=== PATIENT | female | born 1985 | race African-American/Black ===

== ENCOUNTER 2018-06-04 14:31 | Day surgery (SDC) | payer BC, OTHER ==
[2018-06-04 15:27] VITALS: BMI 36.8
--- NOTE | 2018-06-04 16:15 | PDOC.LDHP ---
Labor and Delivery H&P Chief complaint: other HPI: 32 y/o at 27w2d presents after being seen in [place] with the complaint that it feels like her baby is shaking. Dr. Moreira was concerned for seizures and sent her here for evaluation, as their office is closing. Pt describes as intermittent short vibrations coming from her baby. When asked if it felt like "shivering" she agreed. Feels like the baby has good movement but was nervous and has a lot of anxiety. Denies VB, LOF, ctx or decreased FM. ROS neg for HEENT, CV, pulm, GI, , neuro, psych, skin, musculoskeletal, or constitutional symptoms other than mentioned above. OB History Details: 3 prior term SVDs Current complications: none Past Medical History: Anxiety Current medications: pre- vitamins Previous surgical history: other (laparoscopy for endometriosis) Allergies/Adverse Reactions: Allergies Allergy/AdvReac Type Severity Reaction Status Date / Time tramadol Allergy Verified 06/04/18 15:08 Social history: none - Physical Exam Vital signs reviewed and normal: yes General: NAD, resting Lungs: nonlabored breathing Abdomen: gravid Extremeties: no edema FHT: category 1 (150s, mod variability, + accels, no decels) [place] contractions every: none - Assessment 32 y/o with reassuring status. NST reactive, BPP 8/10 (breathing) - Plan -: While I cannot rule out seizures, patient reassured after visit today. Will establish care with OB in [facility] for remainder of .
--- NOTE | 2018-06-04 19:27 | ULT ---
ULTRASOUND BIOPHYSICAL PROFILE: 06/04/18 HISTORY: 32-year-old female in late second trimester of . Evaluate well-being. Dr. Ochoa was present during the time of the scan, and is aware of the biophysical profile score. FINDINGS: breathin tone: 2 movement: 2 Amniotic fluid volume: 2 heart rate: 136 bpm lie: Vertex Placenta: Posterior. No placenta previa. DAPHNE: 17 cm Maternal cervix: 3.5 cm in length and closed. IMPRESSION: Biophysical profile score of 6/8, excluding the non-stress test. ERIC Hamilton POS: LAZARO
== END 2018-06-04 17:25 | disposition home health service (06) ==
LOC: L&D/OP 14:31
PROVIDERS: ATTEND Obstetrics & Gynecology
DX: Z01.89 Encounter for other specified special examinations (principal); Z79.899 Other long term (current) drug therapy; Z88.5 Allergy status to narcotic agent; Z3A.27 27 weeks gestation of pregnancy
CPT/HCPCS: 76819; 99282

== ENCOUNTER 2018-08-04 10:53 | Day surgery (SDC) | payer BC, OTHER ==
[2018-08-04 11:25] VITALS: BP 128/60; TEMP 98.2; BMI 39.2
--- NOTE | 2018-08-05 01:07 | PRG ---
DATE OF SERVICE: 08/05/2018 PRIMARY OB: Dr. Anthony Duran. CHIEF COMPLAINT: Abdominal pain. HISTORY OF PRESENT ILLNESS: The patient is a 32-year-old, G8, P3 female with an intrauterine at 36 weeks and 6 days, who is presenting to Labor and Delivery with complaints of low back pain and that she feels has worsened as the days progressed. She reports that she mainly feels it in her lower back. She has been having some dizziness and blurry vision. Denies any headache, chest pain, shortness of breath, leakage of fluid, or vaginal bleeding. The patient reports that the pains began about 3:30 this morning and is accompanied with abdominal pain. The patient reports that she has been craving ice and jack and foam. The patient also reports she has been having some dizziness and blurry vision last couple of weeks. Denies headache, chest pain, shortness of breath, nausea, vomiting, diarrhea, or constipation. She denies any headaches. She denies vaginal bleeding or leakage of fluid. She denies urinary urgency or frequency. PAST MEDICAL HISTORY: History of seizures, diagnosed 3 years ago; asthma, anxiety. PAST SURGICAL HISTORY: Had her wisdom some teeth removed. SOCIAL HISTORY: Denies drug, alcohol, or tobacco use. ALLERGIES: TRAMADOL PRODUCES HIVES. MEDICATIONS: vitamins. PAST MEDICAL HISTORY: History of seizures, asthma, anxiety. REVIEW OF SYSTEMS: Per HPI. PHYSICAL EXAMINATION: VITAL SIGNS: Blood pressure 128/60, heart rate of 106, temperature 98.6. GENERAL: She appears to be in no acute distress. She is alert, oriented, cooperative, pleasant to interact with. HEAD: Normocephalic, atraumatic. LUNGS: Clear to auscultation bilaterally. HEART: Has regular rate and rhythm. ABDOMEN: Gravid, soft, nontender. She has no vertebral tenderness. No paravertebral tenderness and no significant SI joint tenderness. : On cervical exam, the patient is 2, 40, -3 station. heart tracing shows a baseline in the 150s with moderate long-term variability, positive accelerations, no decelerations. On sterile vaginal exam, she has 2, 40,and -3 station. OB LABORATORY DATA: Blood type is B positive. Antibody screen is unknown at time of dictation. RPR is nonreactive. She is rubella immune. HIV is nonreactive. Hepatitis B surface antigen is nonreactive and she is GBS negative. ASSESSMENT AND PLAN: The patient is a 32-year-old female with a late with abdominal pains, but does not appear to be progressing in the labor. The patient is interested in being discharged home. She has been given term labor precautions and instructions to follow up with her primary OB as scheduled. Job ID: [id number]
== END 2018-08-04 13:24 ==
LOC: L&D/OP 10:53
PROVIDERS: ATTEND Family Medicine
DX: O99.89 Other specified diseases and conditions complicating pregnancy, childbirth and the puerperium (principal); R10.9 Unspecified abdominal pain; O99.353 Diseases of the nervous system complicating pregnancy, third trimester; G40.909 Epilepsy, unspecified, not intractable, without status epilepticus; O99.513 Diseases of the respiratory system complicating pregnancy, third trimester; J45.909 Unspecified asthma, uncomplicated; O99.343 Other mental disorders complicating pregnancy, third trimester; F41.9 Anxiety disorder, unspecified; Z3A.36 36 weeks gestation of pregnancy; Z88.5 Allergy status to narcotic agent
CPT/HCPCS: 99282

== ENCOUNTER 2018-08-13 21:54 | Day surgery (SDC) | payer BC, OTHER ==
[2018-08-13 22:24] VITALS: BP 133/68; TEMP 98.6; BMI 38.7
--- NOTE | 2018-08-13 23:15 | PDOC.LDHP ---
Addendum entered and electronically signed by Jagruti Alcantar MD 08/14/18 02:39: Unchanged from prior check. Labor precautions given. Pt agreeable to discharge. Original Note: Labor and Delivery H&P Chief complaint: contractions HPI: 32 yo @ 38.2wks with EDC 08/25/18 presents with contractions since 1700 today. Denies LOF, VB, discharge, dysuria. +FM Thinks she lost her mucous plug earlier this week. States her contractions are painful. She also states she had one elevated bp at home that was 150/85 and reported some headaches at home this week. She denies a pmhx of chronic htn or PIH. Grav: 8 Para: 3 ([id number]) OB History Details: 3 prior SVDs, one vacuum assisted delivery Current complications: none Abnormal US findings: No Past Medical History: asthma Current medications: pre- vitamins Previous surgical history: other (surgery for endometriosis) Allergies/Adverse Reactions: Allergies Allergy/AdvReac Type Severity Reaction Status Date / Time tramadol Allergy Severe Hives Verified 08/13/18 22:19 Social history: none - Physical Exam Vital signs reviewed and normal: yes General: NAD Heart: RRR Lungs: CTAB Abdomen: gravid Extremeties: trace edema FHT: category 1 [place] contractions every: 1-4 minutes - Vaginal Exam cm dilated: 3 Effacement: 50% Station: -2 - OB Labs Blood type: B RH: positive Antibody Screen: negative HIV: negative RPR: negative HEPSAg: negative 1 hour GCT: unknown GBS: negative Rubella: immune - Assessment L&D Assessment: term patient in labor (latent) - Plan Plan: observation in L&D (Will observe in L&D and recheck cervix in 2 hours. Encouraged ambulation.) Addendum - Attending - Attending Attestation Date/Time: 08/14/18 0630 I personally evaluated the patient and discussed the management with Dr. Alcantar. I agree with the History, Examination, Assessment and Plan documented above.
== END 2018-08-14 02:42 | disposition home or self-care (01) ==
LOC: L&D/OP 21:54
PROVIDERS: ATTEND Family Medicine
DX: O47.1 False labor at or after 37 completed weeks of gestation (principal); Z3A.38 38 weeks gestation of pregnancy; Z79.899 Other long term (current) drug therapy; Z88.5 Allergy status to narcotic agent
CPT/HCPCS: 99283

== ENCOUNTER 2018-08-19 06:23 | Inpatient (IN) | payer BC, OTHER ==
[2018-08-19 06:52] VITALS: BMI 39.5
[2018-08-19] MEDS ORDERED: NS w/ Oxytocin 10 units 500 ML ONE (07:34)
[2018-08-19] MEDS ORDERED: NS / Oxytocin 40 units/1000ml 1,000 ML IV PRN (07:54)
[2018-08-19] MEDS ORDERED: Promethazine HCl 25 MG/ML VIAL IM PRN ×2 (07:54→09:40)
[2018-08-19] MEDS ORDERED: HYDROcodone/Acetaminophen 5/325 mg Tablet PO PRN ×2 (07:54→14:07)
[2018-08-19] MEDS ORDERED: Carboprost 250 MCG/ML AMP IM PRN (07:54)
[2018-08-19] MEDS ORDERED: Ibuprofen 800 MG TAB PO PRN (07:54)
[2018-08-19] MEDS ORDERED: Misoprostol 200 MCG TAB PR PRN (07:54)
[2018-08-19] MEDS ORDERED: Butorphanol Tartrate 1 MG/ML VIAL SLOW IVP PRN (07:54)
[2018-08-19] MEDS ORDERED: Methylergonovine 0.2 MG/ML VIAL IM PRN (07:54)
[2018-08-19] MEDS ORDERED: Diphenoxylate HCl/Atropine Tablet PO PRN (07:54)
[2018-08-19] MEDS ORDERED: Ondansetron PF 4 MG/2 ML Vial IVP PRN ×3 (07:54→14:07)
[2018-08-19] MEDS ORDERED: Lidocaine 1% (PF) 30 ML VIAL SC PRN (07:54)
[2018-08-19] MEDS ORDERED: NS w/ Oxytocin 10 units 500 ML IV SCH ×2 (08:00)
[2018-08-19] MEDS: Lactated Ringer's 1,000 ML IV SCH ×3 (08:00→11:01)
[2018-08-19] MEDS ORDERED: Fentanyl 4 mcg/Bup 0.1% Cadd 100 ML ONE (08:26)
[2018-08-19 08:34] LABS: Hemoglobin 9.4 g/dL (12.0-16.0); Mean Corpuscular HGB CONC 33.1 g/dL (32.0-36.0); Mean Corpuscular Hemoglobin 22.7 pg (27.0-31.0); Mean Corpuscular Volume 68.6 fL (78.0-98.0); Mean Platelet Volume 9.9 fL (7.4-10.4); Platelet Count 240 thou/uL (130-400); RBC Distribution Width 16.5 % (11.5-14.5); Red Blood Cell (RBC) Count 4.13 mill/uL (4.20-5.40)
[2018-08-19] MEDS ORDERED: Lidocaine 2% 10 ML INJ ONE ×3 (08:54→08:55)
[2018-08-19] MEDS ORDERED: Lidocaine 1.5%/Epinephrine 1:200,000 5 ML AMPUL IJ ONE (08:55)
[2018-08-19 09:15] LABS: Hep B Surf Ag Non-Reactive S/CO (NonReactive); Syphilis Antibody Nonreactive (Nonreactive); Syphilis Antibody Index 0.03 S/CO (<1.00 Non-Reactive)
[2018-08-19] MEDS ORDERED: ePHEDrine/0.9% NaCl/PF SYRINGE 50 mg/10 ml SLOW IVP PRN (09:40)
[2018-08-19] MEDS ORDERED: diphenhydrAMINE 50 MG/ML VIAL IVP PRN (09:40)
[2018-08-19] MEDS ORDERED: Acetaminophen 325 MG TAB PO PRN (09:40)
[2018-08-19] MEDS ORDERED: Naloxone HCl 0.4 mg/ml Vial IVP PRN ×2 (09:40)
[2018-08-19] MEDS ORDERED: Lactated Ringer's 500 ML IV PRN (09:40)
[2018-08-19] MEDS ORDERED: Eucerin (Mineral Oil/Petrolatum,White) 30 gm Jar TOP PRN (09:40)
[2018-08-19] MEDS ORDERED: Fentanyl 4 mcg/Bupivacaine 0.1% Cassette 100 ML EPIDURAL SCH (09:45)
[2018-08-19] MEDS ORDERED: Communication Order-Pharmacy FS SCH (09:45)
[2018-08-19] MEDS ORDERED: Milk Of Magnesia 30 ML UDCUP PO PRN (14:07)
[2018-08-19] MEDS ORDERED: Adacel (T-DAP) 0.5 ML SYRINGE IM ONE (14:07)
[2018-08-19] MEDS ORDERED: Bisacodyl 10 MG SUPP PR PRN (14:07)
[2018-08-19] MEDS ORDERED: Benzocaine-Menthol 82.5 ML CAN TOP PRN (14:07)
[2018-08-19] MEDS ORDERED: Lanolin Ointment 7 GM TUBE TOP PRN (14:07)
[2018-08-19] MEDS ORDERED: diphenhydrAMINE 25 MG CAP PO PRN (14:07)
[2018-08-19] MEDS: Ibuprofen 800 MG TAB PO SCH ×2 (14:55→22:18)
[2018-08-19] MEDS: NS / Oxytocin 40 units/1000ml 1,000 ML IV SCH ×2 (15:20→15:21)
[2018-08-19] MEDS: HYDROcodone/Acetaminophen 5/325 mg Tablet PO PRN (17:22)
[2018-08-19] MEDS: Ferrous Sulfate 325 MG TAB PO SCH (17:47)
[2018-08-19] MEDS: Docusate Calcium (SURFAK) 240 MG CAP PO SCH (22:18)
[2018-08-20] MEDS: Ibuprofen 800 MG TAB PO SCH (06:24)
[2018-08-20] MEDS ORDERED: Prenatal Vitamin 1 TAB PO SCH (09:00)
[2018-08-20 09:10] LABS: Hemoglobin 8.5 g/dL (12.0-16.0); Mean Corpuscular HGB CONC 31.3 g/dL (32.0-36.0); Mean Corpuscular Hemoglobin 22.1 pg (27.0-31.0); Mean Corpuscular Volume 70.7 fL (78.0-98.0); Mean Platelet Volume 9.6 fL (7.4-10.4); Platelet Count 198 thou/uL (130-400); RBC Distribution Width 16.4 % (11.5-14.5); Red Blood Cell (RBC) Count 3.85 mill/uL (4.20-5.40); White Blood Cell (WBC) Count 9.1 thou/uL (4.8-10.8)
[2018-08-20] MEDS: Docusate Calcium (SURFAK) 240 MG CAP PO SCH (09:35)
[2018-08-20] MEDS: Ferrous Sulfate 325 MG TAB PO SCH (09:35)
[2018-08-20] MEDS: HYDROcodone/Acetaminophen 5/325 mg Tablet PO PRN (09:38)
[2018-08-20 11:48] VITALS: BP 119/67; TEMP 97.9
== END 2018-08-20 15:30 | disposition home or self-care (01) | DRG 807 ==
LOC: L&D 06:23 → 3SW 15:39
PROVIDERS: ADMIT Family Medicine; ATTEND Family Medicine
PROC: 10E0XZZ Delivery of Products of Conception, External Approach (ICD-10-PCS; principal; 2018-08-19)
PROC: 10907ZC Drainage of Amniotic Fluid, Therapeutic from Products of Conception, Via Natural or Artificial Opening (ICD-10-PCS; 2018-08-19)
PROC: 3E033VJ Introduction of Other Hormone into Peripheral Vein, Percutaneous Approach (ICD-10-PCS; 2018-08-19)
DX: O26.23 Pregnancy care for patient with recurrent pregnancy loss, third trimester (principal); Z37.0 Single live birth; O69.81X0 Labor and delivery complicated by cord around neck, without compression, not applicable or unspecified; Z3A.39 39 weeks gestation of pregnancy
CPT/HCPCS: 36415; 51702; 85027; 86780; 86850; 86900; 86901; 87340; 90715; J2001; J2210; J2590; J3490

== ENCOUNTER 2018-08-26 15:43 | Inpatient (IN) | payer BC, OTHER ==
[2018-08-26] MEDS ORDERED: Furosemide 40 MG/4 ML VIAL ONE (16:28)
[2018-08-26] MEDS ORDERED: Ondansetron PF 4 MG/2 ML Vial IVP PRN (17:09)
[2018-08-26] MEDS ORDERED: Calcium Gluconate 4.6 MEQ in Sodium Chloride 0.9% 100 ML IVPB PRN (17:09)
[2018-08-26] MEDS ORDERED: Docusate 100 MG CAP PO PRN (17:09)
[2018-08-26] MEDS ORDERED: Magnesium Sulfate 20 GM/WATER 500 ML BAG IVPB SCH (17:15)
[2018-08-26] MEDS ORDERED: Magnesium Sulfate 20 gm/500 ml 20 GM/500 ML BAG IVPB SCH (17:15)
[2018-08-26] MEDS ORDERED: Furosemide 40 MG/4 ML VIAL SLOW IVP SCH (17:15)
[2018-08-26] MEDS ORDERED: hydrALAZINE 20 MG/ML VIAL SLOW IVP SCH (17:30)
[2018-08-26 18:46] VITALS: BMI 37.5
[2018-08-26] MEDS ORDERED: Amoxicillin/Potassium Clav 500 MG TAB PO SCH (21:00)
[2018-08-27] MEDS ORDERED: Magnesium Sulfate 20 gm/500 ml 20 GM/500 ML BAG ONE (02:57)
[2018-08-27 04:09] LABS: Mean Corpuscular HGB CONC 31.5 g/dL (32.0-36.0); Mean Corpuscular Hemoglobin 22.6 pg (27.0-31.0); Mean Corpuscular Volume 71.8 fL (78.0-98.0); Mean Platelet Volume 10.1 fL (7.4-10.4); Platelet Count 234 thou/uL (130-400); RBC Distribution Width 18.4 % (11.5-14.5); Red Blood Cell (RBC) Count 4.43 mill/uL (4.20-5.40); White Blood Cell (WBC) Count 5.5 thou/uL (4.8-10.8)
[2018-08-27 07:13] LABS: Albumin 3.3 g/dL (3.5-5.0)
[2018-08-27 07:14] LABS: Chloride 107 mmol/L (98-107); Potassium 3.6 mmol/L (3.5-5.1)
[2018-08-27 07:15] LABS: Calcium 8.2 mg/dL (7.8-10.44); Sodium 142 mmol/L (136-145)
[2018-08-27 07:16] LABS: Globulin 3.1 g/dL (2.4-3.5); Glucose 96 mg/dL (70-105); Protein, Total 6.4 g/dL (6.0-8.3)
[2018-08-27 07:17] LABS: Anion Gap 13 mmol/L (10-20); Bilirubin, Total 0.2 mg/dL (0.2-1.2); Carbon Dioxide 26 mmol/L (22-29)
[2018-08-27 07:18] LABS: Alkaline Phosphatase 105 U/L (40-150)
[2018-08-27 07:19] LABS: Calc. Creatinine Clearance 194 mL/min (70-130); Estimated GFR-MDRD Greater than 90
[2018-08-27 07:20] LABS: BUN (Urea Nitrogen) 4 mg/dL (7.0-18.7)
[2018-08-27 07:21] LABS: AST (SGOT) 25 U/L (5-34)
[2018-08-27 07:22] LABS: ALT (SGPT) 26 U/L (8-55)
[2018-08-27] MEDS ORDERED: Furosemide 40 MG TAB PO SCH (07:30)
[2018-08-27] MEDS: Furosemide 40 MG TAB PO SCH ×2 (07:42→09:25)
[2018-08-27] MEDS ORDERED: Ferrous Sulfate 325 MG TAB PO SCH (08:00)
[2018-08-27] MEDS: Amoxicillin/Potassium Clav 500 MG TAB PO SCH ×4 (08:47→21:02)
[2018-08-27] MEDS: Ferrous Sulfate 325 MG TAB PO SCH ×2 (09:00→15:15)
[2018-08-27] MEDS: Acetaminophen 500 MG TAB PO PRN ×3 (09:24→21:04)
--- NOTE | 2018-08-27 12:01 | RAD ---
PA AND LATERAL CHEST: Date: 08/27/18 HISTORY: preeclampsia, dyspnea. FINDINGS: The heart size appears slightly enlarged. Mediastinal structures are unremarkable. There is some blun ting to the posterior sulci which could indicate small effusions. IMPRESSION: 1. Cardiomegaly. 2. Possible small pleural effusions. POS: [facility]
[2018-08-28] MEDS ORDERED: Losartan 25 MG TAB PO SCH (09:00)
[2018-08-28] MEDS: Ferrous Sulfate 325 MG TAB PO SCH (09:15)
[2018-08-28] MEDS: Amoxicillin/Potassium Clav 500 MG TAB PO SCH (09:15)
[2018-08-28] MEDS: Furosemide 40 MG TAB PO SCH (09:16)
[2018-08-28 12:43] VITALS: BP 159/89; TEMP 98.6
== END 2018-08-28 13:10 | disposition home or self-care (01) | DRG 776 ==
LOC: ERS 15:43 → L&D 18:02 → ERS 18:02 → L&D 18:16
PROVIDERS: ADMIT Family Medicine; ATTEND Family Medicine
DX: O14.95 Unspecified pre-eclampsia, complicating the puerperium (principal); J90 Pleural effusion, not elsewhere classified; O99.53 Diseases of the respiratory system complicating the puerperium; O99.03 Anemia complicating the puerperium; O99.345 Other mental disorders complicating the puerperium; F41.9 Anxiety disorder, unspecified
CPT/HCPCS: 36415; 71046; 80053; 82570; 84156; 85027; 93306; 96374; J1940; J3475

== ENCOUNTER 2018-12-26 12:35 | Emergency (ER) | payer BC, OTHER ==
[~2018-12-26 12:35] MED LIST: ISOVUE-370 76%-LOCM 1 ML ONE
[2018-12-26 13:11] LABS: #Eosinphils 0.2 thou/uL (0.0-0.7); #Lymphocytes 2.5 thou/uL (1.20-3.40); #Monocytes 0.5 thou/uL (0.11-0.59); #Neutrophils 4.1 thou/uL (1.40-6.50); %Basophils 0.3 % (0.0-1.0); %Monocytes 7.3 % (0.0-10.0); %Neutrophils 55.3 % (42.0-75.0); Hemoglobin 10.4 g/dL (12.0-16.0); Mean Corpuscular Hemoglobin 26.9 pg (27.0-31.0); Mean Corpuscular Volume 81.6 fL (78.0-98.0); Mean Platelet Volume 8.6 fL (7.4-10.4); Platelet Count 169 thou/uL (130-400); RBC Distribution Width 13.7 % (11.5-14.5); Red Blood Cell (RBC) Count 3.86 mill/uL (4.20-5.40); White Blood Cell (WBC) Count 7.3 thou/uL (4.8-10.8)
[2018-12-26 13:36] LABS: ALT (SGPT) 47 U/L (8-55); AST (SGOT) 43 U/L (5-34); Albumin 3.5 g/dL (3.5-5.0); Alkaline Phosphatase 70 U/L (40-150); Anion Gap 10 mmol/L (10-20); BUN (Urea Nitrogen) 5 mg/dL (7.0-18.7); Bilirubin, Total 0.2 mg/dL (0.2-1.2); Calc. Creatinine Clearance 0 mL/min (70-130); Calcium 8.5 mg/dL (7.8-10.44); Carbon Dioxide 26 mmol/L (22-29); Chloride 106 mmol/L (98-107); Estimated GFR-MDRD Greater than 90; Globulin 2.4 g/dL (2.4-3.5); Glucose 95 mg/dL (70-105); Potassium 3.4 mmol/L (3.5-5.1); Protein, Total 5.9 g/dL (6.0-8.3); Sodium 139 mmol/L (136-145)
--- NOTE | 2018-12-26 14:07 | CT ---
CT PULMONARY ANGIOGRAM WITH IV CONTRAST AND 3D POST PROCESSING: HISTORY: Cough. Shortness of breath. Recent hysterectomy. FINDINGS: No filling defects are seen in the pulmonary arterial vasculature to suggest pulmonary embolism. The thoracic aorta is well opacified, without aneurysm or dissection. There are tiny bilateral pleural effusions seen with adjacent mild atelectatic changes. There are mild patchy infiltrates in the righ t mid lung. There is a small amount of air in the right upper lateral abdominal wall, likely from re cent surgery. IMPRESSION: No CT evidence of pulmonary embolism. POS: LA[facility]
== END 2018-12-26 14:35 | disposition home or self-care (01) ==
LOC: ERS 12:35
DX: J18.9 Pneumonia, unspecified organism (principal); D64.9 Anemia, unspecified; J45.909 Unspecified asthma, uncomplicated; F41.9 Anxiety disorder, unspecified; Z79.899 Other long term (current) drug therapy
CPT/HCPCS: 36415; 71275; 80053; 84484; 85025; 85379; 93005; 94640; 94799; J7620; Q9966

== ENCOUNTER 2019-04-18 14:22 | Emergency (ER) | payer BC, OTHER | END 2019-04-18 14:50 | disposition left against medical advice (07) | LOC: ERS 14:22 | DX: Z53.21 Procedure and treatment not carried out due to patient leaving prior to being seen by health care provider (principal) | CPT/HCPCS: 93005 ==

== ENCOUNTER 2019-04-19 19:08 | Emergency (ER) | payer BC, OTHER | END 2019-04-19 21:17 | disposition left against medical advice (07) | LOC: ERS 19:08 | DX: Z53.21 Procedure and treatment not carried out due to patient leaving prior to being seen by health care provider (principal) ==